=== PATIENT | male | born 1995 | race Caucasian/White ===

== ENCOUNTER 2020-06-01 08:20 | Day surgery (SDC) | payer BC, OTHER ==
[~2020-06-01 08:20] MED LIST: Glycopyrrolate 0.2 MG/ML SDV ONE; Lactated Ringers 1,000 ML IV SCH; Lidocaine 2% 5 ML SDV ONE; Midazolam 1 MG/ML 2 ML SDV ONE; Propofol 200 MG/20 ML SDV ONE
--- NOTE | 2020-06-01 09:07 | PCM.PREANE ---
Preanesthetic Assessment - Anesthesia/Transfusion/Family Hx Anesthesia History: Prior Anesthesia Without Reaction Other Type of Anesthesia Reaction Comment: states he had severe anxiety prior to his last EGD Family History of Anesthesia Reaction: No Transfusion History: No Prior Transfusion(s) Intubation History: Unknown - Review of Systems General: No Symptoms Pulmonary: No Symptoms Cardiovascular: No Symptoms Gastrointestinal: Difficulty Swallowing Neurological: No Symptoms Other: Reports: None - Physical Assessment Vital Signs: Last Vital Signs Temp 36.5 C 06/01/20 08:38 Pulse 79 06/01/20 08:38 Resp 15 06/01/20 08:38 BP 127/83 06/01/20 08:38 Pulse Ox 95 06/01/20 08:38 Height: 6 ft Weight: 95.708 kg ASA Class: 2 Mental Status: Alert & Oriented x3 Airway Class: Mallampati = 1 Dentition: Reports: Normal Dentition Thyro-Mental Finger Breadths: 3 Mouth Opening Finger Breadths: 3 ROM/Head Extension: Full Lungs: Clear to Auscultation, Normal Respiratory Effort Cardiovascular: Regular Rate, Regular Rhythm - Allergies Allergies/Adverse Reactions: Allergies Allergy/AdvReac Type Severity Reaction Status Date / Time nut - unspecified Allergy "mouth Verified 05/26/20 11:04 gets tingly" - Blood Blood Available: No - Anesthesia Plan Pre-Op Medication Ordered: None - Acknowledgements Anesthesia Type Planned: MAC Pt an Appropriate Candidate for the Planned Anesthesia: Yes Alternatives and Risks of Anesthesia Discussed w Pt/Guardian: Yes Pt/Guardian Understands and Agrees with Anesthesia Plan: Yes PreAnesthesia Questionnaire - Past Health History Medical/Surgical History: Denies Medical/Surgical History HEENT History: Reports: Other (See Below) Other HEENT History: wears glasses/contacts Cardiovascular History: Reports: None Respiratory History: Reports: Asthma Other Respiratory History: "mild asthma", uses inhaler rarely Gastrointestinal History: Reports: GERD, Hiatal Hernia Other Gastrointestinal History: dysphagia Genitourinary History: Reports: None Musculoskeletal History: Reports: Fracture Other Musculoskeletal History: hx fx wrist, foot and fingers Neurological History: Reports: Headaches, Chronic Psychiatric History: Reports: Addiction, Anxiety, Panic Attack Other Psychiatric History: 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 (5 years in July) Endocrine/Metabolic History: Reports: None Hematologic History: Reports: None Immunologic History: Reports: None Oncologic (Cancer) History: Reports: None Dermatologic History: Reports: None - Past Surgical History Head Surgeries/Procedures: Reports: None HEENT Surgical History: Reports: Oral Surgery Cardiovascular Surgical History: Reports: None Respiratory Surgical History: Reports: None GI Surgical History: Reports: EGD (3 years ago) Male Surgical History: Reports: None Endocrine Surgical History: Reports: None Neurological Surgical History: Reports: None Musculoskeletal Surgical History: Reports: None Oncologic Surgical History: Reports: None Dermatological Surgical History: Reports: None - SUBSTANCE USE Tobacco Use Status *Q: Current Every Day Tobacco User Tobacco Use Within Last Twelve Months: Snuff/Dip Recreational Drug Use History: Yes Recreational Drug Type: Reports: Heroin - HOME MEDS Home Medications: Home Meds Albuterol Sulfate [Proair Hfa] 2 puff INH Q4H PRN 03/24/20 [History] Buprenorphine HCl/Naloxone HCl [Buprenorphin-Naloxon 8-2 mg Sl] 1 tab SL TID 03/24/20 [History] Fish Oil/Harriman-3 Fatty Acids [Fish Oil 1,000 MG] 1,000 mg PO DAILY 03/24/20 [History] Multivitamin 1 tab PO DAILY 03/24/20 [History] Omeprazole Magnesium [Prilosec] 10 mg PO DAILY 03/24/20 [History] Sertraline HCl 150 mg PO BEDTIME 03/24/20 [History] - CURRENT (IN HOUSE) MEDS Current Meds: Current Medications Lactated Ringer's (Ringers, Lactated) 1,000 mls @ 125 mls/hr IV ASDIRECTED ANGI Discontinued Medications Glycopyrrolate (Robinul) Confirm Administered Dose 0.2 mg .ROUTE .STK-MED ONE Stop: 06/01/20 07:37 Lactated Ringer's (Ringers, Lactated) 1,000 mls @ 125 mls/hr IV ASDIRECTED ANGI Lidocaine (Xylocaine-Mpf 2%) Confirm Administered Dose 5 ml .ROUTE .STK-MED ONE Stop: 06/01/20 07:37 Midazolam HCl (Versed 1 Mg/Ml) Confirm Administered Dose 2 mg .ROUTE .STK-MED ONE Stop: 06/01/20 07:34 Propofol (Diprivan 20 Ml) Confirm Administered Dose 400 mg .ROUTE .STK-MED ONE Stop: 06/01/20 07:34
--- NOTE | 2020-06-01 09:46 | PCM.OPNOTE ---
- General Post-Op/Procedure Note Date of Surgery/Procedure: 06/01/20 Operative Procedure(s): EGD with biopsies and polypectomy Findings: Gastritis and a stomach polyp dictation number [id number] Pre Op Diagnosis: GERD, Dysphagia Post-Op Diagnosis: Gastritis, stomach polyp Primary Surgeon: Jewel Villafuerte Pathology: EGD with biopsies Stomach polypectomy Complications: None Condition: Good
[2020-06-01 10:11] VITALS: BP 107/67; PULSE 66
--- NOTE | 2020-06-01 10:30 | PCM48HPAN ---
Post Anesthesia Note - EVALUATION WITHIN 48HRS OF ANESTHETIC Vital Signs in Normal Range: Yes Patient Participated in Evaluation: Yes Respiratory Function Stable: Yes Airway Patent: Yes Cardiovascular Function Stable: Yes Hydration Status Stable: Yes Pain Control Satisfactory: Yes Nausea and Vomiting Control Satisfactory: Yes Mental Status Recovered: Yes Vital Signs: Last Vital Signs Temp 36.4 C 06/01/20 10:04 Pulse 66 06/01/20 10:04 Resp 14 06/01/20 10:04 BP 107/67 06/01/20 10:04 Pulse Ox 96 06/01/20 10:04 - COMMENTS/OBSERVATIONS Free Text/Narrative:: No anesthesia problems
--- NOTE | 2020-06-01 10:31 | PCM.POSTAN ---
POST ANESTHESIA ASSESSMENT - MENTAL STATUS Mental Status: Alert, Oriented - VITAL SIGNS Vital Signs: Last Vital Signs Temp 36.4 C 06/01/20 10:04 Pulse 66 06/01/20 10:04 Resp 14 06/01/20 10:04 BP 107/67 06/01/20 10:04 Pulse Ox 96 06/01/20 10:04 - RESPIRATORY Respiratory Status: Respiratory Rate WNL, Airway Patent, O2 Saturation Stable - CARDIOVASCULAR CV Status: Pulse Rate WNL, Blood Pressure Stable - GASTROINTESTINAL GI Status: No Symptoms - PAIN Pain Score: 0 - POST OP HYDRATION Hydration Status: Adequate & Stable - OBSERVATIONS Free Text/Narrative:: No anesthesia problems
--- NOTE | 2020-06-01 13:02 | OR ---
SURGEON: ATD WU MD DATE OF PROCEDURE: 06/01/2020 PREOPERATIVE DIAGNOSES: 1. Gastroesophageal reflux disease. 2. Dysphagia. POSTOPERATIVE DIAGNOSES: 1. Gastritis. 2. Stomach polyp. PROCEDURES PERFORMED: 1. Esophagogastroduodenoscopy with biopsies. 2. Stomach polypectomy. PRIMARY SURGEON: Tad Wu MD ANESTHESIA: With anesthesiologist. EXTENT OF THE EGD: To at least the second part of the duodenum. LIMITATIONS: None. REASON FOR PROCEDURE: The patient is a pleasant 25-year-old gentleman who for the past 3 years feels like food sometimes gets stuck at the bottom of his esophagus. He did have an upper GI swallow, which showed some mild gastroesophageal reflux. He says this choking sensation happens about once per day. I again went over with the patient risks, goals, and alternatives of the procedure. The patient understands and wishes to proceed. OPERATION NARRATIVE: The patient was brought back to the procedure room after physical examination was done. EKG, pulse, pulse oximetry, blood pressure, and capnography were monitored throughout the procedure. Continuous oxygen and sedation were provided by the anesthesiologist. Sedation was began. Now, an upper endoscope was advanced under direct visualization without any difficulty through the upper GI tract. The anatomy and mucosa of the esophagus, GE junction, stomach, pylorus, the first and second part of the duodenum were inspected. Duodenum appeared normal. Withdrawing, the patient did have some mild non-ulcerative gastritis, more in the antrum of the stomach. Some biopsies of the antrum and the pylorus were done to check for H pylori. The scope was retroflexed in the stomach. The patient did have one small polyp in the body of the stomach. This was easily removed with cold biopsy. The scope was brought to the GE junction. GE junction was about 37 cm from incisor. The GE junction appeared intact with a good squamocolumnar junction. Scope was brought into the stomach. Biopsy sites had good hemostasis. The stomach was desufflated. The scope was then brought to the esophagus, the esophagus also appeared normal. The scope was completely removed and the procedure was terminated. ENDOSCOPIC DIAGNOSES: 1. Gastritis. 2. Stomach polyp. RECOMMENDATIONS: The patient should continue his PPI. He may follow up in clinic to go over his pathology. JUAN / LONG /[id number]
== END 2020-06-01 10:46 | disposition home or self-care (01) ==
LOC: MW.SDS 08:20
PROVIDERS: ATTEND Surgery
DX: K29.50 Unspecified chronic gastritis without bleeding (principal); K31.7 Polyp of stomach and duodenum; K21.9 Gastro-esophageal reflux disease without esophagitis; J45.909 Unspecified asthma, uncomplicated; F17.290 Nicotine dependence, other tobacco product, uncomplicated; Z79.51 Long term (current) use of inhaled steroids; Z79.899 Other long term (current) drug therapy; Z98.890 Other specified postprocedural states; Z91.018 Allergy to other foods
CPT/HCPCS: 43239; 88305; 88311; J2250; J2704; J3490; J7120; 00731